=== PATIENT | female | born 1980 | race Two or more races ===

== ENCOUNTER 2024-02-01 20:44 | Emergency (ER) | payer OTHER ==
[~2024-02-01] VITALS: Ht 142.2 cm; Wt 64.5 kg
[2024-02-01 21:41] LABS: BASOPHILS % (AUTO) 0.3 % (0.0-2.0); EOSINOPHILS % (AUTO) 1.6 % (1.0-6.0); HEMATOCRIT 40.1 % (36-46); HEMOGLOBIN 13.2 g/dL (12.0-16.0); LYMPHOCYTES # (AUTO) 1.7 K/uL (1.0-4.8); LYMPHOCYTES % (AUTO) 14.2 % (22.0-44.0); MEAN CORPUSCULAR VOLUME 88 fL (80-100); MONOCYTES # (AUTO) 0.5 K/uL (0.1-1.0); MONOCYTES % (AUTO) 4.5 % (2.0-9.0); NEUTROPHILS # (AUTO) 9.5 K/uL (1.8-7.7); NEUTROPHILS % (AUTO) 79.4 % (40.0-70.0); PLATELET COUNT (AUTO) 393 K/uL (150-450); RED BLOOD CELL COUNT(AUTO) 4.55 MIL/uL (4.00-5.20); RED CELL DISTRIBUTION WIDTH 13.5 % (11.5-14.5)
[2024-02-01 21:59] LABS: ANION GAP 10 mmol/L (8-16); CALCIUM, TOTAL 9.2 mg/dL (8.8-10.5); CARBON DIOXIDE 25 mmol/L (22-29); CHLORIDE 101 mmol/L (98-107); CREATININE 0.88 mg/dL (0.60-1.30); GLOMERULAR FILTR. RATE CALC > 60 mL/min (>60); GLUCOSE,RANDOM 114 mg/dL (70-110); POTASSIUM 4.1 mmol/L (3.5-5.1); SODIUM SERUM 136 mmol/L (136-145); UREA NITROGEN, BLOOD 13 mg/dL (7-18)
[2024-02-01 22:00] LABS: APPEARANCE,URINE HAZY (CLEAR); BILIRUBIN,URINE NEGATIVE (NEGATIVE); COLOR,URINE YELLOW (YELLOW); GLUCOSE, URINE (UA) NEGATIVE (NEGATIVE); KETONES,URINE NEGATIVE (NEGATIVE); LEUKOCYTE ESTERASE ,URINE LARGE (NEGATIVE); NITRATE,URINE NEGATIVE (NEGATIVE); OCCULT BLOOD,URINE TRACE (NEGATIVE); PROTEIN,URINE TRACE mg/dL (NEGATIVE); SPECIFIC GRAVITIY, URINE 1.019 (1.003-1.030); UROBILINOGEN,URINE <=1.0 mg/dL (<=1.0)
[2024-02-01 22:12] LABS: RBC,URINE 0-2 /HPF (0-2)
[2024-02-01 22:13] LABS: BACTERIA,URINE Moderate /HPF (None Seen); MUCUS,URINE Few LPF (None Seen); SQUAMOUS EPITHELIAL CELL,UR Few /LPF (None Seen)
[2024-02-01 22:17] LABS: HCG,QUANTITATIVE 4 mIU/mL (0-6); LIPASE 24 U/L (16-77)
[2024-02-01] MEDS ORDERED: KETOROLAC TROMETHAMINE 30 MG/ML VIAL IVP ONE (23:00)
[2024-02-01 23:07] LABS: ALANINE AMINOTRANSFERASE 24 U/L (12-78); ALBUMIN 3.7 g/dL (3.4-5.0); ALKALINE PHOSPHATASE 64 U/L (46-116); ASPARTATE AMINOTRANSFERASE 24 U/L (15-37); BILIRUBIN,TOTAL 0.5 mg/dL (0.1-1.0)
[2024-02-01] MEDS: ONDANSETRON HCL 4 MG/2 ML VIAL IVP ONE (23:12)
[2024-02-01] MEDS: SODIUM CHLORIDE 0.9% 1,000 ML IV ONE (23:12)
[2024-02-01 23:30] VITALS: TEMP 98
[2024-02-01] MEDS: KETOROLAC TROMETHAMINE 15 MG/ML VIAL IVP ONE (23:33)
[2024-02-01] MEDS: FAMOTIDINE 20 MG/2 ML VIAL IVP ONE ×2 (23:35)
[2024-02-01] MEDS ORDERED: SODIUM CHLORIDE 0.9% 100 ML ONE (23:59)
[2024-02-02] MEDS ORDERED: IOHEXOL 350 MG/ML 100 ML VIAL ONE
[2024-02-02] MEDS ORDERED: IBUP-1492 PO (01:26)
[2024-02-02] MEDS ORDERED: CEPH-558 PO (01:26)
[2024-02-02] MEDS ORDERED: ONDA-104 PO (01:28)
[2024-02-02 01:33] VITALS: BP 103/63; PULSE 63; RESP 16; O2SAT 97
[2024-02-02] MEDS: CEPHALEXIN MONOHYDRATE 500 MG CAPSULE PO ONE (01:38)
== END 2024-02-02 01:47 | disposition home or self-care (01) ==
LOC: EMS 20:44
DX: N39.0 Urinary tract infection, site not specified (principal)
CPT/HCPCS: 99285; 96374; 76705; 96375; 96361; 80048; 80076; 81001; 83690; 84702; 85025; 87086; 87147; 36415; 74177; J3490; J1885; J2405; J7030; J7050; Q9967